=== PATIENT | female | born 1990 | race Caucasian/White ===

== ENCOUNTER → 2017-02-01 | Outpatient (CLI) | payer OTHER ==
[~2017-02-01] MED LIST: ACEPHEN650 MG RC; ACETAMINOPHEN325 MG PO; ACIDOPHILUS1 CA1 PO; AMITRIPTYLINE H25 MG PO; AMITRIPTYLINE H50 MG PO; AMOXICILLIN PO; ANEXSIA 7.5/3251 TA1 PO; ANTI-DIARRHEAL2 M1 PO; APAP325 M2 PO; BACTROBAN15 GM TOP; BENTYL10 M1 PO; BENTYL10 MG PO; CEPHALEXIN500 M1 PO; CIPRO PO; CYMBALTA PO; CYMBALTA30 MG PO; DIAZEPAM PO; DIAZEPAM2 MG PO; DIFLUCAN PO; GABAPENTIN300 MG PO; GABAPENTIN400 M2 PO; HUMALOG100 U/M1 XX; HUMALOG100 U/ML SUBQ; HYDROXYZINE HCL25 M1 PO; IBUPROFEN600 MG PO; IMURAN50 MG PO; LANTUS100 U/ML INJ; LANTUS100 U/ML SUBQ; LANTUS100 UNITS/ SUBQ; LASIX20 MG PO; LEVAQUIN750 MG PO; LEVEMIR SUBQ; LEVEMIR100 U/ML SQ; LIPITOR PO; LISINOPRIL2.5 MG PO; LORTAB; MILK OF MAGNESIA PO; MOTRIN600 M1 PO; MOTRIN600 M2 PO; NEURONTIN100 MG PO; NEURONTIN300 MG PO; NEURONTIN600 MG PO; NORCO 5/325 TAB1 TAB PO; NORCO 7.5-3251 EACH PO; NOVOLIN 70/30 V10 M1 SQ; NOVOLIN 70100 UNITS/ INJ; NOVOLIN N100 UNIT/1 SUBQ; NOVOLIN R100 UNITS/ SUBQ; NOVOLOG MI100 UNIT/1 SUBQ; NOVOLOG100 U/M2; NOVOLOG100 U/ML; NOVOLOG100 U/ML SUBQ; NOVOLOG100 UNITS/ SUBQ; NOVOLOG7030 SUBQ; OMEPRAZOLE20 M2 PO; ONDANSETRON ODT4 MG PO; PAXIL PO; PEPCID AC20 M2 PO; PREDNISONE10 MG PO; PREVACID15 M1 PO; SERTRALINE HCL100 MG PO; THERA M PLUS1 UDTA1 PO; VANTIN100 MG PO; ZOFRAN PO; ZOLOFT PO; ZOLOFT50 MG PO; ZYPREXA PO; [UNRECOGNIZED DRUG - REMARK]
--- NOTE | ~2017-02-01 | MR113 ---
[facility] A Service of [facility] RADIOLOGY TEXT RESULTS PATIENT: GONZALO NOE LOCATION: CMRI : 89 UNIT #: [id number] AGE: [address]: Venkata Hedrick SEX: F ORDER DR: [id number] [facility] [address] [place], [place] [address] [id number] MR#: [id number] Acc #: [id number] NAME: GONZALO NOE : 1990 SEX: F STUDY DATE/TIME: 02/01/2017 13:25 UNIT: [facility] ROOM: STUDY DESCRIPTION: MR Lumbar Wo Contrast Attending Physician: Venkata Hedrick M.D. Referring Physician: Venkata Hedrick M.D. Ordering Physician: Venkata Hedrick M.D. Primary Care Physician: Willard Vargas M.D. MRI CENTER REPORT This report is preliminary unless electronic signature is present. STUDY Lumbar spine MRI without contrast, date of study 02/01/2017. PROCEDURE Routine unenhanced lumbar spine MRI. COMPARISON Prior MRI dated 04/28/2013. HISTORY Low back pain since 2008, gradually worsening. Pain worse since 2014. FINDINGS Spine alignment is normal. Bone marrow signal is normal. The distal cord and conus are normal in position and appearance, and the paraspinous soft tissues are normal. There is no canal or foraminal compromise at any level. Intervertebral discs are well preserved in height and hydration. IMPRESSION Normal unenhanced lumbar spine MRI. Dictated by... Rodriguez Castro M.D. THIS IS AN ELECTRONICALLY VERIFIED REPORT Rodriguez Castro M.D. at 02/04/2017 9:07 AM TEV/psc TD: 02/02/2017 12:56 JOB #: [id number] [facility] A Service of [facility] RADIOLOGY TEXT RESULTS PATIENT: GONZALO NOE LOCATION: CMRI : 89 UNIT #: [id number] AGE: [address]: Venkata Hedrick SEX: F ORDER DR: MRI CENTER REPORT Page 1 of 1 COPY
== END | disposition home or self-care (01) ==
LOC: CMRI 12:43
DX: S39.012A Strain of muscle, fascia and tendon of lower back, initial encounter (principal)
CPT/HCPCS: 72148